=== PATIENT | male | born 1975 | race Hispanic/Latino ===

== ENCOUNTER 2025-05-16 10:31 | Outpatient (CLI) | payer OTHER | END 2025-05-16 10:32 | disposition home or self-care (01) | LOC: CSHRAD 10:31 | PROVIDERS: ATTEND Nurse Practitioner Family | DX: Z02.71 Encounter for disability determination (principal); R52 Pain, unspecified; M47.816 Spondylosis without myelopathy or radiculopathy, lumbar region | CPT/HCPCS: 71046; 72100 ==